=== PATIENT | male | born 1940 | race Two or more races ===

== ENCOUNTER 2017-12-15 08:37 | Day surgery (SDC) | payer OTHER ==
[2017-12-12 15:48] VITALS: BMI 28.1
[2017-12-15] MEDS ORDERED: PROPOFOL 20 ML ONE (11:25)
[2017-12-15] MEDS ORDERED: KETOROLAC TROMETHAMINE 30 MG/1 ML VIAL ONE (11:37)
--- NOTE | 2017-12-15 12:05 | OP ---
Operative Note - Note: Operative Date: 12/15/17 Pre-Operative Diagnosis: Right renal stone Operation: Right ESWL Findings: 7 mm Right kidney lower pole stone Post-Operative Diagnosis: Same as Pre-op Anesthesia: Fractional Estimated Blood Loss (mls): 0
[2017-12-15 15:29] VITALS: BP 140/70; PULSE 57; TEMP 97.8
--- NOTE | 2017-12-15 21:39 | OP ---
DATE OF OPERATION: 12/15/2017 PREOPERATIVE DIAGNOSIS: Right renal stone. POSTOPERATIVE DIAGNOSIS: Right renal stone. PROCEDURE: Right extracorporeal shock wave lithotripsy. ATTENDING: Remi Bains MD ANESTHESIA: Fractional. DESCRIPTION OF OPERATION: The patient was brought in the operating room and placed in supine position on the operating room table. Ultrasonography and fluoroscopy were performed. A right-sided, 7-mm lower pole stone was identified. Anesthesia and preoperative antibiotics were then given to the patient, and 2500 impulses at 17 joules of power were administered to the stone with excellent fragmentation noted under real-time ultrasonography and fluoroscopy. There were no complications noted. The patient tolerated the procedure well. REMI BAINS M.D. [id number]
== END 2017-12-15 14:00 | disposition home or self-care (01) ==
LOC: JASU-SURG 08:37
PROVIDERS: ATTEND Urology
PROC: 0TF3XZZ Fragmentation in Right Kidney Pelvis, External Approach (ICD-10-PCS; principal; 2017-12-15 10:15)
DX: N20.0 Calculus of kidney (principal)
CPT/HCPCS: 82962

== ENCOUNTER 2018-07-02 16:21 | Inpatient (IN) | payer OTHER | END 2018-07-06 18:14 | disposition home or self-care (01) | LOC: J6S 07-03 00:09 → JER 16:21 → JERBED 22:54 ==

== ENCOUNTER 2020-01-17 11:43 | Emergency (ER) | payer OTHER | END 2020-01-17 14:57 | disposition home or self-care (01) | LOC: JVIRT 11:43 | DX: U07.1 COVID-19 (principal) | CPT/HCPCS: 87804; C9803; G2012-GT; Q3014-GT; U0003 ==

== ENCOUNTER 2020-01-20 10:22 | Emergency (ER) | payer OTHER | END 2020-01-20 11:38 | disposition home or self-care (01) | LOC: JVIRT 10:22 | DX: U07.1 COVID-19 (principal) | CPT/HCPCS: G2012-GT; Q3014-GT ==

== ENCOUNTER 2022-12-25 10:27 | Day surgery (SDC) | payer OTHER ==
[2022-12-23 16:43] VITALS: BMI 26.5
[2022-12-25] MEDS ORDERED: TETRACAINE 0.5% OPHTH SOLN 2 ML BOTTLE ONE (11:12)
[2022-12-25] MEDS ORDERED: BSS (NA/CA/MG/K) BALANCED SALT SOLUTION OPHTH SOLN 15 ML BOTTLE ONE (11:12)
[2022-12-25] MEDS ORDERED: LIDOCAINE 1% P/F 10 MG/ML VIAL ONE (11:12)
[2022-12-25] MEDS ORDERED: CARBACHOL 0.01% INTRA-OCULAR 1.5 ML VIAL ONE (11:12)
[2022-12-25] MEDS ORDERED: NEO/POLYMYX B SULF/DEXAMETH OPHTHALMIC 5ML BOTTLE ONE (11:12)
[2022-12-25] MEDS: CIPROFLOXACIN HCL 0.3% OPHTH 2.5ML BOTTLE ONE ×3 (11:45→11:55)
[2022-12-25] MEDS: PHENYLEPHRINE 2.5% OPTHALMIC DROP 2ML BOTTLE ONE ×3 (11:45→11:55)
[2022-12-25] MEDS: CYCLOPENTOLATE 2% OPHTH SOLN 2 ML BOTTLE ONE ×3 (11:45→11:55)
[2022-12-25] MEDS: TROPICAMIDE 1% OPHTH SOLN 15 ML BOTTLE ONE ×3 (11:45→11:55)
[2022-12-25] MEDS ORDERED: MIDAZOLAM HCL 2 MG/2 ML SINGLE DOSE VIAL ONE (13:13)
[2022-12-25 13:22] VITALS: RESP 16
[2022-12-25 13:49] VITALS: TEMP 97.6
[2022-12-26 09:10] VITALS: BP 112/68; PULSE 62
== END 2022-12-25 14:15 | disposition home or self-care (01) ==
LOC: FASU 10:27
PROVIDERS: ATTEND Ophthalmology
PROC: 08ND3ZZ Release Left Iris, Percutaneous Approach (ICD-10-PCS; 2022-12-25)
PROC: 08RK3JZ Replacement of Left Lens with Synthetic Substitute, Percutaneous Approach (ICD-10-PCS; principal; 2022-12-25 13:18)
DX: H26.8 Other specified cataract (principal); H43.89 Other disorders of vitreous body
CPT/HCPCS: 66984; V2632; 82962

== ENCOUNTER 2023-07-02 10:34 | Day surgery (SDC) | payer OTHER ==
[2023-06-30 14:22] VITALS: BMI 26.5
[2023-07-02] MEDS: TROPICAMIDE 1% OPHTH SOLN 15 ML BOTTLE ONE (11:10)
[2023-07-02] MEDS: CYCLOPENTOLATE 2% OPHTH SOLN 2 ML BOTTLE ONE (11:10)
[2023-07-02] MEDS: CIPROFLOXACIN 0.3% EYE DROPS 5 ML BOTTLE ONE (11:10)
[2023-07-02] MEDS: PHENYLEPHRINE 2.5% OPTHALMIC DROP 2ML BOTTLE ONE (11:10)
[2023-07-02] MEDS ORDERED: TETRACAINE 0.5% OPHTH SOLN 2 ML BOTTLE ONE (12:02)
[2023-07-02] MEDS ORDERED: LIDOCAINE 1% P/F 10 MG/ML VIAL ONE (12:02)
[2023-07-02] MEDS ORDERED: BSS (NA/CA/MG/K) BALANCED SALT SOLUTION OPHTH SOLN 15 ML BOTTLE ONE (12:02)
[2023-07-02] MEDS ORDERED: CARBACHOL 0.01% INTRA-OCULAR 1.5 ML VIAL ONE (12:03)
[2023-07-02] MEDS ORDERED: NEO/POLYMYX B SULF/DEXAMETH OPHTHALMIC 5ML BOTTLE ONE (12:03)
[2023-07-02] MEDS ORDERED: MIDAZOLAM HCL 2 MG/2 ML SINGLE DOSE VIAL ONE (13:43)
[2023-07-02 14:24] VITALS: PULSE 62; RESP 16; TEMP 97.3
[2023-07-02 14:44] VITALS: BP 145/76
== END 2023-07-02 14:40 | disposition home or self-care (01) ==
LOC: FASU 10:34
PROVIDERS: ATTEND Ophthalmology
PROC: 08RJ3JZ Replacement of Right Lens with Synthetic Substitute, Percutaneous Approach (ICD-10-PCS; principal; 2023-07-02 14:00)
DX: H26.8 Other specified cataract (principal)
CPT/HCPCS: 66984; V2632; 82962